=== PATIENT | female | born 1975 | race Caucasian/White ===

== ENCOUNTER 2018-04-01 18:56 | Emergency (ER) | payer BC ==
[2018-04-01] MEDS ORDERED: HYDROmorphone 2 MG/ML SDV IVPUSH ONE ×2 (19:12→19:48)
[2018-04-01] MEDS ORDERED: Sodium Chloride 0.9% 2.5 ML Syringe FLUSH PRN (19:12)
[2018-04-01] MEDS ORDERED: Pantoprazole 40 MG Vial IVPUSH ONE (19:12)
[2018-04-01] MEDS ORDERED: Ondansetron 4 MG/2 ML SDV IVPUSH ONE (19:12)
[2018-04-01] MEDS ORDERED: Sodium Chloride 0.9% 1,000 ML IV ONE (19:12)
[2018-04-01] MEDS ORDERED: Sodium Chloride 0.9% 10 ML Syringe FLUSH PRN (19:12)
--- NOTE | 2018-04-01 19:14 | EDM.PDOC ---
ED HPI GENERAL MEDICAL PROBLEM - General Chief Complaint: Abdominal Pain Stated Complaint: STOMACH PAIN Time Seen by Provider: 04/01/18 19:07 - History of Present Illness INITIAL COMMENTS - FREE TEXT/NARRATIVE: HISTORY AND PHYSICAL: History of present illness: The patient is a 42-year-old female with a history of a gastric sleeve and 2015 without complications and a hysterectomy who has only one ovary but no other GI history or GI surgeries who presents with sudden onset of epigastric and upper abdominal pain that started about 12 noon. The patient says that she was felt fine prior to this without a fever or upper respiratory symptoms or GI complaints. She thought maybe she ate something finding and she had some much nausea she felt that if she vomited she might feel better. She is only been having dry heaves. She has no flank pain or urinary complaints and no lower abdominal pain. She does feel little bit bloated. She says she has been having heartburn on and off for the last several weeks and has been taking over-the- counter meds but did not take any medications today for this discomfort. The pain has never been this severe. The patient says that she has had normal bowel movements that are not black or bloody. Patient denies any chest pain or shortness of breath no other systemic complaints Patient also tells me that she has had 2 surgeries on the right kidney including a stent for what they believe to be a 1 cm stone. I reviewed prior x- rays done here to follow that but she says that her urologist told her this is not a stone but it is scar tissue. She has no pain in the right flank. Review of systems: As per history of present illness and below otherwise all systems reviewed and negative. Past medical history: As per history of present illness and as reviewed below otherwise noncontributory. Surgical history: As per history of present illness and as reviewed below otherwise noncontributory. Social history: No reported history of drug or alcohol abuse. Family history: As per history of present illness and as reviewed below otherwise noncontributory. Physical exam: General: Well-developed well-nourished thin female who is nontoxic and looks visibly uncomfortable and is somewhat diaphoretic. Vital signs are noted by me HEENT: Atraumatic, normocephalic, negative for conjunctival pallor or scleral icterus, mucous membranes moist, throat clear, neck supple, nontender, trachea midline. Lungs: Clear to auscultation, breath sounds equal bilaterally, chest nontender. Wheezing stridor or work of breathing Heart: S1S2, regular rhythm and tachycardic rate on my evaluation, negative for clicks, rubs, or JVD. Abdomen: Soft, nondistended, no sounds are hypoactive and there is tympany in the lower abdomen without tenderness and there is epigastric and left upper quadrant tenderness with palpation. There is voluntary guarding no involuntary guarding and no rebound. Negative for masses or hepatosplenomegaly. Negative for costovertebral tenderness. Pelvis: Stable nontender. Genitourinary: Deferred. Rectal: Deferred. Extremities: Atraumatic, negative for cords or calf pain. Neurovascular unremarkable. Neuro: Awake, alert, oriented. Cranial nerves II through XII unremarkable. Cerebellum unremarkable. Motor and sensory unremarkable throughout. Exam nonfocal. Skin: There are no overt rashes or lesions and turgor is normal but the patient is slightly diaphoretic Diagnostics: CBC CMP H. pylori amylase lipase UA upright abdominal x-ray CT scan of the abdomen and pelvis Therapeutics: IV IV fluids protonix Zofran Dilaudid She received Benadryl after she felt some itchiness in her face after the Dilaudid. Patient is feeling more comfortable and she and family at bedside are aware of all testing results. I advised close follow-up with Dr. Fontana in the clinic, her provider, for further testing such as possible endoscopy and/or HIDA scan I' ve advised her to avoid caffeine and alcohol spicy foods and eat a low-fat diet. I will give her antacids for home as well as a few tramadol. I've advised her on reasons to return. We also discussed gentle bowel cleansing to evacuate the gas and stool that's in the colon Impression: Upper abdominal pain stable etiology unclear Definitive disposition and diagnosis as appropriate pending reevaluation and review of above. epigastric Pain Score (Numeric/FACES): 10 - Related Data Allergies Allergy/AdvReac Type Severity Reaction Status Date / Time Sulfa (Sulfonamide Allergy Rash Verified 04/01/18 19:32 Antibiotics) Home Meds: Home Meds Zolpidem Tartrate [Ambien] 12.5 mg PO BEDTIME 04/01/18 [History] ED ROS GENERAL - Review of Systems Review Of Systems: ROS reveals no pertinent complaints other than HPI. ED EXAM, GENERAL - Physical Exam Exam: See Below (See dictation) Course - Vital Signs Last Recorded V/S: Last Vital Signs Temp 37.2 C 04/01/18 19:00 Pulse 93 04/01/18 20:27 Resp 14 04/01/18 20:27 BP 141/84 H 04/01/18 20:27 Pulse Ox 100 04/01/18 20:27 - Orders/Labs/Meds Orders: Active Orders 24 hr Category Date Time Status Abdomen 1V Upright [CR] Stat Exams 04/01/18 19:15 Taken Abdomen Pelvis w Cont [CT] Stat Exams 04/01/18 19:12 Taken UA W/MICROSCOPIC [URIN] Stat Lab 04/01/18 19:06 Ordered Sodium Chloride 0.9% [Saline Flush] Med 04/01/18 19:12 Active 10 ml FLUSH ASDIRECTED PRN Sodium Chloride 0.9% [Saline Flush] Med 04/01/18 19:12 Active 2.5 ml FLUSH ASDIRECTED PRN Saline Lock Insert [OM.PC] Stat Oth 04/01/18 19:11 Ordered Medication Orders Sodium Chloride (Saline Flush) 10 ml FLUSH ASDIRECTED PRN PRN Reason: Keep Vein Open Sodium Chloride (Saline Flush) 2.5 ml FLUSH ASDIRECTED PRN PRN Reason: Keep Vein Open Labs: Laboratory Tests 04/01/18 04/01/18 04/01/18 Range/Units 19:06 19:20 19:20 WBC 8.10 (4.0-11.0) K/uL RBC 4.35 (4.30-5.90) M/uL Hgb 11.3 L (12.0-16.0) g/dL Hct 36.7 (36.0-46.0) % MCV 84.4 (80.0-98.0) fL MCH 26.0 L (27.0-32.0) pg MCHC 30.8 L (31.0-37.0) g/dL RDW Std Deviation 44.8 (28.0-62.0) fl RDW Coeff of Elian 14 (11.0-15.0) % Plt Count 379 (150-400) K/uL MPV 11.20 (7.40-12.00) fL Neut % (Auto) 46.0 L (48.0-80.0) % Lymph % (Auto) 47.3 H (16.0-40.0) % Desha % (Auto) 5.2 (0.0-15.0) % Eos % (Auto) 0.9 (0.0-7.0) % Baso % (Auto) 0.6 (0.0-1.5) % Neut # (Auto) 3.7 (1.4-5.7) K/uL Lymph # (Auto) 3.8 H (0.6-2.4) K/uL Desha # (Auto) 0.4 (0.0-0.8) K/uL Eos # (Auto) 0.1 (0.0-0.7) K/uL Baso # (Auto) 0.1 (0.0-0.1) K/uL Nucleated RBC % 0.0 /100WBC Nucleated RBCs # 0 K/uL Sodium 140 (136-145) mmol/L Potassium 3.8 (3.5-5.1) mmol/L Chloride 105 (98-107) mmol/L Carbon Dioxide 25.4 (21.0-32.0) mmol/L BUN 18 (7.0-18.0) mg/dL Creatinine 0.8 (0.6-1.0) mg/dL Est Cr Clr Drug Dosing TNP Estimated GFR (MDRD) > 60.0 ml/min Glucose 97 (74-106) mg/dL Calcium 11.0 H (8.5-10.1) mg/dL Total Bilirubin 0.3 (0.2-1.0) mg/dL AST 19 (15-37) IU/L ALT 16 (14-63) IU/L Alkaline Phosphatase 62 (46-116) U/L Total Protein 8.1 (6.4-8.2) g/dL Albumin 4.6 (3.4-5.0) g/dL Globulin 3.5 (2.0-3.5) g/dL Albumin/Globulin Ratio 1.3 (1.3-2.8) Amylase 60 (25-115) U/L Lipase 192 (73-393) U/L Urine Color YELLOW Urine Appearance CLEAR Urine pH 8.0 (5.0-8.0) Ur Specific [place] 1.015 (1.001-1.035) Urine Protein NEGATIVE (NEGATIVE) mg/dL Urine Glucose (UA) NEGATIVE (NEGATIVE) mg/dL Urine Ketones NEGATIVE (NEGATIVE) mg/dL Urine Occult Blood NEGATIVE (NEGATIVE) Urine Nitrite NEGATIVE (NEGATIVE) Urine Bilirubin NEGATIVE (NEGATIVE) Urine Urobilinogen 0.2 (<2.0) EU/dL Ur Leukocyte Esterase NEGATIVE (NEGATIVE) Urine RBC 0-1 (0-2/HPF) Urine WBC 0-1 (0-5/HPF) Ur Epithelial Cells FEW (NONE-FEW) Urine Bacteria FEW (NEGATIVE) H. pylori IgG Antibody (NEG) 04/01/18 Range/Units 19:20 WBC (4.0-11.0) K/uL RBC (4.30-5.90) M/uL Hgb (12.0-16.0) g/dL Hct (36.0-46.0) % MCV (80.0-98.0) fL MCH (27.0-32.0) pg MCHC (31.0-37.0) g/dL RDW Std Deviation (28.0-62.0) fl RDW Coeff of Elian (11.0-15.0) % Plt Count (150-400) K/uL MPV (7.40-12.00) fL Neut % (Auto) (48.0-80.0) % Lymph % (Auto) (16.0-40.0) % Desha % (Auto) (0.0-15.0) % Eos % (Auto) (0.0-7.0) % Baso % (Auto) (0.0-1.5) % Neut # (Auto) (1.4-5.7) K/uL Lymph # (Auto) (0.6-2.4) K/uL Desha # (Auto) (0.0-0.8) K/uL Eos # (Auto) (0.0-0.7) K/uL Baso # (Auto) (0.0-0.1) K/uL Nucleated RBC % /100WBC Nucleated RBCs # K/uL Sodium (136-145) mmol/L Potassium (3.5-5.1) mmol/L Chloride (98-107) mmol/L Carbon Dioxide (21.0-32.0) mmol/L BUN (7.0-18.0) mg/dL Creatinine (0.6-1.0) mg/dL Est Cr Clr Drug Dosing Estimated GFR (MDRD) ml/min Glucose (74-106) mg/dL Calcium (8.5-10.1) mg/dL Total Bilirubin (0.2-1.0) mg/dL AST (15-37) IU/L ALT (14-63) IU/L Alkaline Phosphatase (46-116) U/L Total Protein (6.4-8.2) g/dL Albumin (3.4-5.0) g/dL Globulin (2.0-3.5) g/dL Albumin/Globulin Ratio (1.3-2.8) Amylase (25-115) U/L Lipase (73-393) U/L Urine Color Urine Appearance Urine pH (5.0-8.0) Ur Specific [place] (1.001-1.035) Urine Protein (NEGATIVE) mg/dL Urine Glucose (UA) (NEGATIVE) mg/dL Urine Ketones (NEGATIVE) mg/dL Urine Occult Blood (NEGATIVE) Urine Nitrite (NEGATIVE) Urine Bilirubin (NEGATIVE) Urine Urobilinogen (<2.0) EU/dL Ur Leukocyte Esterase (NEGATIVE) Urine RBC (0-2/HPF) Urine WBC (0-5/HPF) Ur Epithelial Cells (NONE-FEW) Urine Bacteria (NEGATIVE) H. pylori IgG Antibody NEGATIVE (NEG) Meds: Medications Generic Name Dose Route Start Last Admin Trade Name Freq PRN Reason Stop Dose Admin Sodium Chloride 10 ml 04/01/18 19:12 Saline Flush FLUSH ASDIRECTED PRN Keep Vein Open Sodium Chloride 2.5 ml 04/01/18 19:12 Saline Flush FLUSH ASDIRECTED PRN Keep Vein Open Discontinued Medications Generic Name Dose Route Start Last Admin Trade Name Freq PRN Reason Stop Dose Admin Diphenhydramine HCl 50 mg 04/01/18 20:16 04/01/18 20:22 Benadryl IVPUSH 04/01/18 20:17 50 mg ONETIME ONE Administration Hydromorphone HCl 1 mg 04/01/18 19:12 04/01/18 19:21 Dilaudid IVPUSH 04/01/18 19:13 1 mg ONETIME ONE Administration Hydromorphone HCl 1 mg 04/01/18 19:48 04/01/18 19:53 Dilaudid IVPUSH 04/01/18 19:49 1 mg ONETIME ONE Administration Sodium Chloride 1,000 mls @ 999 mls/hr 04/01/18 19:12 04/01/18 19:21 Normal Saline IV 04/01/18 20:12 999 mls/hr STAT ONE Administration Iopamidol 80 ml 04/01/18 20:26 04/01/18 20:27 Isovue-370 (76%) IVPUSH 04/01/18 20:27 80 ml ONETIME STA Administration Ondansetron HCl 4 mg 04/01/18 19:12 04/01/18 19:21 Zofran IVPUSH 04/01/18 19:13 4 mg ONETIME ONE Administration Pantoprazole Sodium 80 mg 04/01/18 19:12 04/01/18 19:21 Protonix Iv IVPUSH 04/01/18 19:13 80 mg .BOLUS ONE Administration Departure - Departure Time of Disposition: 21:11 Disposition: Home, Self-Care 01 Condition: Good Clinical Impression: Abdominal pain Qualifiers: Abdominal location: upper abdomen, unspecified Qualified Code(s): R10.10 - Upper abdominal pain, unspecified - Discharge Information Referrals: PCP,None [Primary Care Provider] - Forms: ED Department Discharge Additional Instructions: The following information is given to patients seen in the emergency department who are being discharged to home. This information is to outline your options for follow-up care. We provide all patients seen in our emergency department with a follow-up referral. The need for follow-up, as well as the timing and circumstances, are variable depending upon the specifics of your emergency department visit. If you don't have a primary care physician on staff, we will provide you with a referral. We always advise you to contact your personal physician following an emergency department visit to inform them of the circumstance of the visit and for follow-up with them and/or the need for any referrals to a consulting specialist. The emergency department will also refer you to a specialist when appropriate. This referral assures that you have the opportunity for followup care with a specialist. All of these measure are taken in an effort to provide you with optimal care, which includes your followup. Under all circumstances we always encourage you to contact your private physician who remains a resource for coordinating your care. When calling for followup care, please make the office aware that this follow-up is from your recent emergency room visit. If for any reason you are refused follow-up, please contact the [facility] emergency department at and ask to speak to the emergency department charge nurse. Primary care- Internal Medicine and Family [place] [phone] [place] [id number] Please contact her provider in the clinic as we discussed to be seen reevaluated and have further testing performed as indicated. Please fill-in use the prescriptions yet been given. Avoid caffeinated products alcohol spicy foods and eat a low-fat diet. Try to promote gas and stool movement as we discussed using [id number] preps such as MiraLAX. Return to ER as needed and as discussed - My Orders Last 24 Hours: My Active Orders 04/01/18 19:06 UA W/MICROSCOPIC [URIN] Stat 04/01/18 19:11 Saline Lock Insert [OM.PC] Stat 04/01/18 19:12 Abdomen Pelvis w Cont [CT] Stat Sodium Chloride 0.9% [Saline Flush] 10 ml FLUSH ASDIRECTED PRN Sodium Chloride 0.9% [Saline Flush] 2.5 ml FLUSH ASDIRECTED PRN 04/01/18 19:15 Abdomen 1V Upright [CR] Stat - Assessment/Plan Last 24 Hours: My Active Orders 04/01/18 19:06 UA W/MICROSCOPIC [URIN] Stat 04/01/18 19:11 Saline Lock Insert [OM.PC] Stat 04/01/18 19:12 Abdomen Pelvis w Cont [CT] Stat Sodium Chloride 0.9% [Saline Flush] 10 ml FLUSH ASDIRECTED PRN Sodium Chloride 0.9% [Saline Flush] 2.5 ml FLUSH ASDIRECTED PRN 04/01/18 19:15 Abdomen 1V Upright [CR] Stat
[2018-04-01 19:48] LABS: CHLORIDE,CL 105 mmol/L (98-107); SODIUM,NA 140 mmol/L (136-145)
[2018-04-01] MEDS ORDERED: diphenhydrAMINE 50 MG/ML SDV IVPUSH ONE (20:16)
[2018-04-01] MEDS ORDERED: Iopamidol 755 Mg/ML 100 ML Bottle IVPUSH STA (20:26)
--- NOTE | 2018-04-02 14:46 | CR ---
EXAM DATE: 04/01/18 PATIENT'S AGE: 42 Patient: MICHAEL CARPIO Facility: [place], [place] Site . Site : 1975 Study: XRay Abdomen [id number]/14/2018 7:52:38 PM Ordering Physician: Lucien Jenkins Final Report: INDICATION: Pain. TECHNIQUE: Single upright view of the abdomen. COMPARISON: None. IMPRESSION: No free intraperitoneal air is identified. There is a nonobstructive bowel gas pattern with a moderate amount of stool in the colon. Nonspecific calcification is again seen in the right upper quadrant. No acute osseous abnormality. Dictated by Justin Benedict MD @ 04/01/2018 8:17:44 PM Dictated by: Justin Benedict MD @ 04/01/2018 20:19:29 (Electronic Signature) Report Signed by Proxy. MTDCristofer
--- NOTE | 2018-04-02 14:50 | CT ---
EXAM DATE: 04/01/18 PATIENT'S AGE: 42 Patient: MICHAEL CARPIO Facility: [place], [place] Site . Site : 1975 Study: CT Abdomen/Pelvis [id number]/14/2018 8:32:23 PM Ordering Physician: Lucien Jenkins Final Report: INDICATION: Epigastric pain. TECHNIQUE: Multiple axial images were obtained from the diaphragm to the symphysis pubis after administration of 80 mL of Isovue-370 intravenously. Sagittal and coronal re-formatted images were obtained. COMPARISON: Plain film done earlier same date. FINDINGS: The visualized portion of the lung bases are clear. There is no focal liver lesion. The spleen, pancreas, gallbladder and adrenal glands are unremarkable. There is no mass or hydronephrosis in the kidneys. There is a 1.1 cm stone in the right mid kidney. There is scarring with associated cortical calcifications in the upper and lower pole of the right kidney. There is no evidence of a bowel obstruction. The appendix is visualized in the right lower quadrant and is unremarkable. There is a small amount of free fluid in the pelvis. There is evidence of previous surgery on the stomach. There are multiple phleboliths in the pelvis. The abdominal aorta is normal in caliber. There is no adenopathy seen. IMPRESSION: Small amount of free fluid in the pelvis which is likely physiologic. 1.1 cm right kidney stone. No hydronephrosis in the kidneys. Scarring in the right kidney. Evidence of previous surgery on the stomach. No bowel obstruction. Dictated by Sy Westfall MD @ 04/01/2018 8:53:22 PM Please note that all CT scans at this facility use dose modulation, iterative reconstruction, and/or weight-based dosing when appropriate to reduce radiation dose to as low as reasonably achievable. Dictated by: Sy Westfall MD @ 04/01/2018 20:55:03 (Electronic Signature) Report Signed by Proxy. [facility] H[facility]PITALCristofer
== END 2018-04-01 21:35 | disposition home or self-care (01) ==
LOC: MW.ED 18:56
DX: R10.13 Epigastric pain (principal); R10.10 Upper abdominal pain, unspecified; Z88.2 Allergy status to sulfonamides
CPT/HCPCS: 74018; 74177; 80053; 81001; 82150; 83690; 85025; 86677; 96361; 96374; 96375; 96376; 99284; C9113; J1170; J1200; J2405; J7040; Q9967; 99283

== ENCOUNTER 2018-05-02 11:00 | Day surgery (SDC) | payer BC ==
[~2018-05-02 11:00] MED LIST: Lactated Ringers 1,000 ML IV SCH
--- NOTE | 2018-05-02 11:39 | PCM.PREANE ---
Preanesthetic Assessment - Anesthesia/Transfusion/Family Hx Anesthesia History: Prior Anesthesia Reaction Type of Anesthesia Reaction: Excessive Nausea/Vomiting (no PONV with colonoscopy ) Transfusion History: No Prior Transfusion(s) - Review of Systems General: No Symptoms Pulmonary: No Symptoms Cardiovascular: No Symptoms Neurological: No Symptoms Other: Reports: None - Physical Assessment NPO Status Date: 05/01/18 Height: 1.63 m Weight: 61.235 kg ASA Class: 2 Mental Status: Alert & Oriented x3 Airway Class: Mallampati = 1 Dentition: Reports: Normal Dentition ROM/Head Extension: Full Lungs: Clear to Auscultation, Normal Respiratory Effort Cardiovascular: Regular Rate - Allergies Allergies/Adverse Reactions: Allergies Allergy/AdvReac Type Severity Reaction Status Date / Time Sulfa (Sulfonamide Allergy Rash Verified 04/29/18 10:57 Antibiotics) - Anesthesia Plan Pre-Op Medication Ordered: None - Acknowledgements Anesthesia Type Planned: MAC Pt an Appropriate Candidate for the Planned Anesthesia: Yes Alternatives and Risks of Anesthesia Discussed w Pt/Guardian: Yes Pt/Guardian Understands and Agrees with Anesthesia Plan: Yes PreAnesthesia Questionnaire HEENT History: Reports: None Gastrointestinal History: Reports: GERD Genitourinary History: Reports: Renal Calculus [employer] History: Reports: Endometriosis, Musculoskeletal History: Reports: Fracture Other Musculoskeletal History: hx fx wrist - Past Surgical History Head Surgeries/Procedures: Reports: None HEENT Surgical History: Reports: Tonsillectomy GI Surgical History: Reports: Bariatric Procedure Other GI Surgeries/Procedures: gastric banding, removal of gastric banding, gastric sleeve Female Surgical History: Reports: D&C, Hysterectomy, Lithotripsy/ESWL, Other (See Below) Other Female Surgeries/Procedures: laparoscopy x9 for endometriosis - SUBSTANCE USE Smoking Status *Q: Never Smoker Recreational Drug Use History: No - HOME MEDS Home Medications: Home Meds Zolpidem Tartrate [Ambien] 12.5 mg PO BEDTIME 04/01/18 [History] Cyclobenzaprine HCl 10 mg PO ASDIRECTED PRN 04/29/18 [History] Omeprazole 40 mg PO DAILY 04/29/18 [History] - CURRENT (IN HOUSE) MEDS Current Meds: Current Medications Lactated Ringer's (Ringers, Lactated) 1,000 mls @ 125 mls/hr IV ASDIRECTED NIK
[2018-05-02] MEDS ORDERED: Lidocaine 2% 5 ML SDV ONE (12:13)
[2018-05-02] MEDS ORDERED: Propofol 200 MG/20 ML SDV ONE (12:13)
[2018-05-02] MEDS ORDERED: Midazolam 1 MG/ML 2 ML SDV ONE (12:13)
--- NOTE | 2018-05-02 13:27 | PCM.OPNOTE ---
- General Post-Op/Procedure Note Date of Surgery/Procedure: 05/02/18 Operative Procedure(s): Diagnostic EGD Findings: Gastric mucosa free of pathology. Normal appearing sleeve. Questionable hiatal hernia Pre Op Diagnosis: Epigastric pain Post-Op Diagnosis: same Anesthesia Technique: MAC Primary Surgeon: Racquel Gomez Condition: Good
--- NOTE | 2018-05-02 13:40 | PCM.POSTAN ---
POST ANESTHESIA ASSESSMENT - MENTAL STATUS Mental Status: Alert, Oriented - RESPIRATORY Respiratory Status: Respiratory Rate WNL, Airway Patent, O2 Saturation Stable - CARDIOVASCULAR CV Status: Pulse Rate WNL, Blood Pressure Stable - GASTROINTESTINAL GI Status: No Symptoms - POST OP HYDRATION Hydration Status: Adequate & Stable
--- NOTE | 2018-05-02 14:02 | PCM48HPAN ---
Post Anesthesia Note - EVALUATION WITHIN 48HRS OF ANESTHETIC Vital Signs in Normal Range: Yes Patient Participated in Evaluation: Yes Respiratory Function Stable: Yes Airway Patent: Yes Cardiovascular Function Stable: Yes Hydration Status Stable: Yes Pain Control Satisfactory: Yes Nausea and Vomiting Control Satisfactory: Yes Mental Status Recovered: Yes Resp Rate: 16
--- NOTE | 2018-05-02 19:41 | OR ---
SURGEON: JIE DYKES MD DATE OF PROCEDURE: 05/02/2018 PREOPERATIVE DIAGNOSIS: Epigastric abdominal pain. POSTOPERATIVE DIAGNOSIS: Epigastric abdominal pain. PROCEDURE PERFORMED: Diagnostic esophagogastroduodenoscopy. INSTRUMENT USED: Olympus endoscope. PREPARATION: Good. LIMITATIONS: None. INDICATION FOR EXAMINATION: The patient is a 42-year-old female with past medical history significant for a sleeve gastrectomy. She has been having epigastric abdominal pain. She has undergone an extensive workup, which has all been normal. Decision was made to perform a diagnostic EGD. We discussed the procedure, expected perioperative course, and risks. The patient verbalized understanding and wishes to proceed. PROCEDURE IN DETAIL: The patient was brought to the endoscopy suite and placed in a beach chair position. A time-out was completed verifying the patient's name, age, date of , allergies, and procedure to be performed. A bite block was placed in the patient's mouth. Continuous oxygen provided via nasal cannula. Monitored anesthesia care was induced. After adequate sedation was achieved, a well lubricated endoscope was placed in the patient's mouth and advanced under direct visualization to the level of the second portion of duodenum. This appeared normal and a photograph was taken. The scope was then fully withdrawn while examining the color, texture, anatomy, integrity mucosa of the upper GI tract. The duodenum appeared normal. The scope was brought into the stomach. The stomach with narrowing tubular, which was to be expected after a sleeve gastrectomy. I was unable to retroflex the scope within the stomach, given its small size. A photograph was taken of the pylorus, which appeared normal. The gastric mucosa appeared pink and healthy with no evidence of any inflammation. The scope was brought into the distal esophagus. The patient had some tortuosity of the upper part of the stomach and esophagus. No evidence of inflammation, however, was noted. A photograph was taken of the GE junction. The scope was fully removed through remainder of the esophagus. The esophageal mucosa appeared normal with no evidence of pathology. The scope was removed from the patient and the procedure was terminated. The patient was transferred to the PACU in stable condition. ENDOSCOPIC DIAGNOSIS: Epigastric abdominal pain. RECOMMENDATIONS: I do not see any cause at this time for the patient's epigastric pain. She can continue taking lansoprazole. She can follow up with me in 2 weeks to discuss any further workup or referral to other specialists. SHERRI / MODL /[id number] NOE
== END 2018-05-02 14:05 | disposition home or self-care (01) ==
LOC: MW.SDS 11:00
PROVIDERS: ATTEND Surgery
DX: R10.13 Epigastric pain (principal); K31.89 Other diseases of stomach and duodenum; K22.8 Other specified diseases of esophagus; D64.9 Anemia, unspecified; E83.52 Hypercalcemia; F51.04 Psychophysiologic insomnia; Z79.899 Other long term (current) drug therapy; Z88.2 Allergy status to sulfonamides
CPT/HCPCS: 43235; J2250; J7120; J2704

== ENCOUNTER 2019-12-14 18:49 | Emergency (ER) | payer BC ==
[2019-12-14] MEDS ORDERED: Sodium Chloride 0.9% 2.5 ML Syringe FLUSH PRN (19:15)
[2019-12-14] MEDS ORDERED: Sodium Chloride 0.9% 1,000 ML IV ONE (19:15)
[2019-12-14] MEDS ORDERED: Aspirin 81 MG Tab.Chew PO ONE (19:15)
[2019-12-14] MEDS ORDERED: Sodium Chloride 0.9% 10 ML Syringe FLUSH PRN (19:15)
--- NOTE | 2019-12-14 19:19 | EDM.PDOC ---
ED HPI GENERAL MEDICAL PROBLEM - General Chief Complaint: Cardiovascular Problem Stated Complaint: heart problem Time Seen by Provider: 12/14/19 19:08 - History of Present Illness INITIAL COMMENTS - FREE TEXT/NARRATIVE: HISTORY AND PHYSICAL: History of present illness: The patient is a 44-year-old female who follows with Dr. Fontana and has been in the clinic for urinary issues and who presents to the ED tonight with an episode of palpitations which happened while she was at a meeting for work and has improved since arrival here. The patient tells me that she had a normal day only that she had some lower back pain which started yesterday while doing laundry and she ate normally and has not had any fevers chills upper respiratory symptoms vomiting or diarrhea. The patient says that at the meeting she started feeling like her heart was racing and she did not have any chest pain with it but she did feel little lightheaded and nauseated. Currently she is not lightheaded or nauseated and her heart rate has improved. She tells me that she has had similar episodes to this in the past occurring 2- 3 times a week for the last several months but she has not talked to her provider about it. She says that usually she can get her heart rate to improve just by relaxing but tonight she could not get it to stop so she came into the ED. She is not a smoker and does not drink excessive caffeine and she has no leg pain or swelling and is not on any oral contraceptives. Review of systems: As per history of present illness and below otherwise all systems reviewed and negative. Past medical history: As per history of present illness and as reviewed below otherwise noncontributory. Surgical history: As per history of present illness and as reviewed below otherwise noncontributory. Social history: No reported history of drug or alcohol abuse. Family history: As per history of present illness and as reviewed below otherwise noncontributory. Physical exam: Dental: Well-developed well-nourished thin female who is nontoxic and who is intermittently tearful in the ED. Her initial triage vitals are noted but her blood pressure is already normalized and in my conversation with her as she became more tearful and upset her heart rate would go up to low 100s and then as she would come down and relax it would normalize to the 80s. HEENT: Atraumatic, normocephalic, pupils reactive, negative for conjunctival pallor or scleral icterus, mucous membranes moist, throat clear, neck supple, nontender, trachea midline. No thyromegaly cervical adenopathy or nuchal rigidity Lungs: Clear to auscultation, breath sounds equal bilaterally, chest nontender. Heart: S1S2, regular, negative for clicks, rubs, or JVD. Abdomen: Soft, nondistended, nontender. Negative for masses or hepatosplenomegaly. Negative for costovertebral tenderness. Pelvis: Stable nontender. Genitourinary: Deferred. Rectal: Deferred. Extremities: Atraumatic, negative for cords or calf pain. Neurovascular unremarkable. No pedal edema calf tenderness or leg asymmetry Neuro: Awake, alert, oriented. Cranial nerves II through XII unremarkable. Cerebellum unremarkable. Motor and sensory unremarkable throughout. Exam nonfocal. Diagnostics: EKG chest x-ray CBC CMP troponin TSH UA with reflex Therapeutics: IV, O2 monitor IV fluids aspirin Discussed with the patient that we would do the work-up but that she would likely need follow-up in the clinic and probably a heart monitor to record what is occurring in her daily life and to help the provider in the clinic with a care plan. She states understanding. We do have an available Zio Patch and we will place it and instruct patient to start documenting her symptoms. I have told her that she needs to call and tell Dr. Fontana in the clinic that she has the patch on and schedule this follow-up. I have advised her on reasons to return to the ED and to push more fluids Impression: Episodic palpitations acute on chronic Definitive disposition and diagnosis as appropriate pending reevaluation and review of above. - Related Data Allergies Allergy/AdvReac Type Severity Reaction Status Date / Time Sulfa (Sulfonamide Allergy Rash Verified 12/14/19 19:00 Antibiotics) sulfamethoxazole Allergy Rash Verified 12/14/19 19:04 [From Bactrim] trimethoprim [From Bactrim] Allergy Rash Verified 12/14/19 19:04 Home Meds: Home Meds Tamsulosin HCl [Flomax] 0.4 mg PO DAILY 12/14/19 [History] Past Medical History HEENT History: Reports: None Cardiovascular History: Reports: None Respiratory History: Reports: None Gastrointestinal History: Reports: GERD Genitourinary History: Reports: Renal Calculus [employer] History: Reports: Endometriosis, Musculoskeletal History: Reports: Fracture Other Musculoskeletal History: hx fx wrist Neurological History: Reports: None Psychiatric History: Reports: None Endocrine/Metabolic History: Reports: None Hematologic History: Reports: None Immunologic History: Reports: None Oncologic (Cancer) History: Reports: None Dermatologic History: Reports: None - Infectious Disease History Infectious Disease History: Reports: None - Past Surgical History Head Surgeries/Procedures: Reports: None HEENT Surgical History: Reports: Tonsillectomy Cardiovascular Surgical History: Reports: None Respiratory Surgical History: Reports: None GI Surgical History: Reports: Bariatric Procedure Other GI Surgeries/Procedures: gastric banding, removal of gastric banding, gastric sleeve Female Surgical History: Reports: D&C, Hysterectomy, Lithotripsy/ESWL, Other (See Below) Other Female Surgeries/Procedures: laparoscopy x9 for endometriosis Endocrine Surgical History: Reports: None Neurological Surgical History: Reports: None Musculoskeletal Surgical History: Reports: None Oncologic Surgical History: Reports: None Dermatological Surgical History: Reports: None Social & Family History - Family History Family Medical History: Noncontributory - Tobacco Use Smoking Status *Q: Never Smoker Second Hand Smoke Exposure: No - Caffeine Use Caffeine Use: Reports: None - Recreational Drug Use Recreational Drug Use: No ED ROS GENERAL - Review of Systems Review Of Systems: Comprehensive ROS is negative, except as noted in HPI. ED EXAM, GENERAL - Physical Exam Exam: See Below (see Dictation) Course - Vital Signs Last Recorded V/S: Last Vital Signs Temp 36.6 C 12/14/19 18:58 Pulse 110 H 12/14/19 19:25 Resp 19 12/14/19 19:25 BP 141/93 H 12/14/19 19:25 Pulse Ox 100 12/14/19 19:25 - Orders/Labs/Meds Orders: Active Orders 24 hr Category Date Time Status Cardiac Monitoring [RC] . DIRECTED Care 12/14/19 19:15 Active EKG 12 Lead [EKG Documentation Completion] [RC] STAT Care 12/14/19 19:04 Active Oxygen Therapy, ED [RC] ASDIRECTED Care 12/14/19 19:15 Active Pulse Oximetry [RC] ASDIRECTED Care 12/14/19 19:15 Active UA RFX XIOMY AND CULT IF INDIC [URIN] Stat Lab 12/14/19 19:15 Ordered Sodium Chloride 0.9% [Saline Flush] Med 12/14/19 19:15 Active 10 ml FLUSH ASDIRECTED PRN Sodium Chloride 0.9% [Saline Flush] Med 12/14/19 19:15 Active 2.5 ml FLUSH ASDIRECTED PRN Saline Lock Insert [OM.PC] Stat Oth 12/14/19 19:15 Ordered Medication Orders Sodium Chloride (Saline Flush) 10 ml FLUSH ASDIRECTED PRN PRN Reason: Keep Vein Open Sodium Chloride (Saline Flush) 2.5 ml FLUSH ASDIRECTED PRN PRN Reason: Keep Vein Open Labs: Laboratory Tests 12/14/19 12/14/19 Range/Units 18:58 18:58 WBC 9.21 (4.0-11.0) K/uL RBC 4.44 (4.30-5.90) M/uL Hgb 14.1 (12.0-16.0) g/dL Hct 42.4 (36.0-46.0) % MCV 95.5 (80.0-98.0) fL MCH 31.8 (27.0-32.0) pg MCHC 33.3 (31.0-37.0) g/dL RDW Std Deviation 47.6 (28.0-62.0) fl RDW Coeff of Elian 14 (11.0-15.0) % Plt Count 258 (150-400) K/uL MPV 11.60 (7.40-12.00) fL Neut % (Auto) 60.2 (48.0-80.0) % Lymph % (Auto) 32.1 (16.0-40.0) % Mcnairy % (Auto) 6.7 (0.0-15.0) % Eos % (Auto) 0.7 (0.0-7.0) % Baso % (Auto) 0.3 (0.0-1.5) % Neut # (Auto) 5.5 (1.4-5.7) K/uL Lymph # (Auto) 3.0 H (0.6-2.4) K/uL Mcnairy # (Auto) 0.6 (0.0-0.8) K/uL Eos # (Auto) 0.1 (0.0-0.7) K/uL Baso # (Auto) 0.0 (0.0-0.1) K/uL Nucleated RBC % 0.0 /100WBC Nucleated RBCs # 0 K/uL Sodium 142 (136-145) mmol/L Potassium 3.6 (3.5-5.1) mmol/L Chloride 107 (98-107) mmol/L Carbon Dioxide 22.9 (21.0-32.0) mmol/L BUN 26 H (7.0-18.0) mg/dL Creatinine 0.9 (0.6-1.0) mg/dL Est Cr Clr Drug Dosing 68.16 mL/min Estimated GFR (MDRD) > 60.0 ml/min Glucose 90 (74-106) mg/dL Calcium 10.5 H (8.5-10.1) mg/dL Total Bilirubin 0.2 (0.2-1.0) mg/dL AST 12 L (15-37) IU/L ALT 22 (14-63) IU/L Alkaline Phosphatase 73 (46-116) U/L Troponin I < 0.050 (0.000-0.056) ng/mL Total Protein 7.6 (6.4-8.2) g/dL Albumin 4.2 (3.4-5.0) g/dL Globulin 3.4 (2.6-4.0) g/dL Albumin/Globulin Ratio 1.2 (0.9-1.6) TSH 3rd Generation 1.12 (0.36-3.74) uIU/mL Meds: Medications Generic Name Dose Route Start Last Admin Trade Name Mayito PRN Reason Stop Dose Admin Sodium Chloride 10 ml 12/14/19 19:15 Saline Flush FLUSH ASDIRECTED PRN Keep Vein Open Sodium Chloride 2.5 ml 12/14/19 19:15 Saline Flush FLUSH ASDIRECTED PRN Keep Vein Open Discontinued Medications Generic Name Dose Route Start Last Admin Trade Name Freq PRN Reason Stop Dose Admin Aspirin 324 mg 12/14/19 19:15 12/14/19 19:22 Aspirin PO 12/14/19 19:16 324 mg ONETIME ONE Administration Sodium Chloride 1,000 mls @ 999 mls/hr 12/14/19 19:15 12/14/19 19:23 Normal Saline IV 12/14/19 20:15 999 mls/hr STAT ONE Administration Departure - Departure Time of Disposition: 20:28 Disposition: Home, Self-Care 01 Reason for Transfer *Q: Primary PCI Indicated Condition: Good Clinical Impression: Palpitations, Sinus tachycardia Referrals: Radha Fontana MD [Primary Care Provider] - Forms: ED Department Discharge Additional Instructions: The following information is given to patients seen in the emergency department who are being discharged to home. This information is to outline your options for follow-up care. We provide all patients seen in our emergency department with a follow-up referral. The need for follow-up, as well as the timing and circumstances, are variable depending upon the specifics of your emergency department visit. If you don't have a primary care physician on staff, we will provide you with a referral. We always advise you to contact your personal physician following an emergency department visit to inform them of the circumstance of the visit and for follow-up with them and/or the need for any referrals to a consulting specialist. The emergency department will also refer you to a specialist when appropriate. This referral assures that you have the opportunity for followup care with a specialist. All of these measure are taken in an effort to provide you with optimal care, which includes your followup. Under all circumstances we always encourage you to contact your private physician who remains a resource for coordinating your care. When calling for followup care, please make the office aware that this follow-up is from your recent emergency room visit. If for any reason you are refused follow-up, please contact the [facility] emergency department at and ask to speak to the emergency department charge nurse. [facility]- Internal Medicine and Family [address] [address] Try to avoid caffeine use and push hydration. Please continue to monitor your symptoms and keep a symptom journal of when these events are occurring along their lasting and if there are any triggers or surrounding events. Please call and make a follow-up appointment with your provider in the clinic. Return to ER as needed and as discussed. A Zio Patch placed in the ED and you need to monitor your symptoms and keep a journal and you will be informed on where to return this patch. Having this patch placed does not preclude following up with your provider this week. Sepsis Event Note - Evaluation Sepsis Screening Result: No Definite Risk - Focused Exam Vital Signs: Vital Signs Temp Pulse Resp BP Pulse Ox 12/14/19 19:25 110 H 19 141/93 H 100 12/14/19 19:10 95 19 136/76 100 12/14/19 18:58 36.6 C 132 H 22 H 170/110 H 100 Date Exam was Performed: 12/14/19 Time Exam was Performed: 20:27 - My Orders Last 24 Hours: My Active Orders 12/14/19 19:04 EKG 12 Lead [EKG Documentation Completion] [RC] STAT 12/14/19 19:15 Cardiac Monitoring [RC] . DIRECTED Oxygen Therapy, ED [RC] ASDIRECTED Pulse Oximetry [RC] ASDIRECTED UA RFX XIOMY AND CULT IF INDIC [URIN] Stat Sodium Chloride 0.9% [Saline Flush] 10 ml FLUSH ASDIRECTED PRN Sodium Chloride 0.9% [Saline Flush] 2.5 ml FLUSH ASDIRECTED PRN Saline Lock Insert [OM.PC] Stat - Assessment/Plan Last 24 Hours: My Active Orders 12/14/19 19:04 EKG 12 Lead [EKG Documentation Completion] [RC] STAT 12/14/19 19:15 Cardiac Monitoring [RC] . DIRECTED Oxygen Therapy, ED [RC] ASDIRECTED Pulse Oximetry [RC] ASDIRECTED UA RFX XIOMY AND CULT IF INDIC [URIN] Stat Sodium Chloride 0.9% [Saline Flush] 10 ml FLUSH ASDIRECTED PRN Sodium Chloride 0.9% [Saline Flush] 2.5 ml FLUSH ASDIRECTED PRN Saline Lock Insert [OM.PC] Stat
[2019-12-14 19:48] LABS: BLOOD UREA NITROGEN,BUN 26 mg/dL (7.0-18.0); CARBON DIOXIDE,CO2 22.9 mmol/L (21.0-32.0); CHLORIDE,CL 107 mmol/L (98-107); GLUCOSE RANDOM 90 mg/dL (74-106); POTASSIUM,K 3.6 mmol/L (3.5-5.1); SODIUM,NA 142 mmol/L (136-145)
--- NOTE | 2019-12-14 20:26 | CR ---
Chest: Portable view of the chest was obtained. Comparison: No prior chest imaging is available. Heart size and mediastinum are normal. Lungs are clear. Bony structures appear unremarkable for the patient's age. Impression: 1. Nothing acute is seen on portable chest x-ray. Diagnostic code #1 This report was dictated in [place] Standard Time
== END 2019-12-14 21:04 | disposition home or self-care (01) ==
LOC: MW.ED 18:49
DX: R00.2 Palpitations (principal); R00.0 Tachycardia, unspecified; Z88.2 Allergy status to sulfonamides; Z79.899 Other long term (current) drug therapy
CPT/HCPCS: 36415; 71045; 80053; 81003; 84443; 84484; 85025; 93005; 96360; 99285; A9270; J7030; 99284

== ENCOUNTER 2022-09-28 06:42 | Day surgery (SDC) | payer BC ==
[~2022-09-28 06:42] MED LIST changes: -Lactated Ringers 1,000 ML IV SCH; +Sodium Chloride 0.9% 10 ML Syringe FLUSH PRN; +Sodium Chloride 0.9% 2.5 ML Syringe FLUSH PRN; +Sodium Chloride 0.9% 20 ML SDV IV PRN
[2022-09-28] MEDS: Lactated Ringers 1,000 ML IV SCH (07:09)
[2022-09-28] MEDS ORDERED: Propofol 200 MG/20 ML SDV ONE (07:20)
[2022-09-28] MEDS ORDERED: Lidocaine 2% 5 ML SDV ONE (07:20)
[2022-09-28] MEDS ORDERED: fentaNYL 100 MCG/2 ML SDV ONE (07:20)
== END 2022-09-28 09:19 | disposition home or self-care (01) ==
LOC: MW.SDS 06:42
PROVIDERS: ATTEND Surgery
DX: Z12.11 Encounter for screening for malignant neoplasm of colon (principal); G43.909 Migraine, unspecified, not intractable, without status migrainosus; D50.9 Iron deficiency anemia, unspecified; E21.3 Hyperparathyroidism, unspecified; K21.9 Gastro-esophageal reflux disease without esophagitis; E55.9 Vitamin D deficiency, unspecified; M81.0 Age-related osteoporosis without current pathological fracture; Z88.2 Allergy status to sulfonamides; Z79.899 Other long term (current) drug therapy; Z80.0 Family history of malignant neoplasm of digestive organs; Z98.890 Other specified postprocedural states; Z87.891 Personal history of nicotine dependence
CPT/HCPCS: 00812; J2704; J3010; J7120

== ENCOUNTER 2025-10-02 16:40 | Observation (INO) | payer BC ==
[2025-10-02] MEDS ORDERED: Sodium Chloride 0.9% 2.5 ML Syringe FLUSH PRN (16:46)
[2025-10-02] MEDS ORDERED: Sodium Chloride 0.9% 10 ML Syringe FLUSH PRN (16:46)
[2025-10-02] MEDS: Ondansetron 4 MG/2 ML SDV IVPUSH ONE ×2 (17:05→19:35)
[2025-10-02 18:41] LABS: BASOPHILS ABSOLUTE AUTO 0.05 K/uL (0.00-0.20); BASOPHILS PERCENT AUTO 0.4 % (0.0-1.0); EOSINOPHILS ABSOLUTE AUTO 0.09 K/uL (0.00-0.45); EOSINOPHILS PERCENT AUTO 0.6 % (0.0-6.0); IMMATURE GRAN ABSOLUTE AUTO 0.03 K/uL (0.00-0.05); IMMATURE GRAN PERCENT AUTO 0.2 % (0.0-0.4); LYMPHOCYTES ABSOLUTE AUTO 1.80 K/uL (1.00-4.80); LYMPHOCYTES PERCENT AUTO 12.8 % (24.0-44.0); MEAN PLATELET VOLUME 10.1 fL (9.4-12.3); MONOCYTES ABSOLUTE AUTO 0.75 K/uL (0.00-0.80); MONOCYTES PERCENT AUTO 5.3 % (0.0-8.0); NEUTROPHILS ABSOLUTE AUTO 11.35 K/uL (1.80-7.70); NEUTROPHILS PERCENT AUTO 80.7 % (41.0-71.0); NRBC ABSOLUTE 0.00 K/uL (0.00-0.02); NRBC PERCENT 0.0 /100WBC (0.0-0.2); PLATELET COUNT,PLT 243 K/uL (150-400); RED BLOOD CELL COUNT 4.30 M/uL (4.10-5.30); WHITE BLOOD CELL COUNT,WBC 14.07 K/uL (3.9-11.3)
[2025-10-02] MEDS: Iopamidol 755 MG/ML 500 ML Multipack Bottle IVPUSH STA (18:57)
[2025-10-02 19:10] LABS: A/G RATIO 1.5 (0.9-1.6); ALANINE AMINOTRANSFERASE,ALT 28.0 IU/L (14-63); ASPARTATE AMNIOTRANSFERASE,AST 23.0 IU/L (15-37); BILIRUBIN TOTAL 0.2 mg/dL (0.2-1.0); BLOOD UREA NITROGEN,BUN 18.0 mg/dL (7.0-18.0); CARBON DIOXIDE,CO2 31.8 mmol/L (21.0-32.0); CHLORIDE,CL 107.0 mmol/L (98-107); CREATININE 0.5 mg/dL (0.6-1.0); EST CRCL DRUG DOSING (CG) 114.95 mL/min; GLUCOSE RANDOM 90.0 mg/dL (74-106); POTASSIUM,K 4.7 mmol/L (3.5-5.1); PROTEIN TOTAL,TP 6.1 g/dL (6.4-8.2); SODIUM,NA 145.0 mmol/L (136-145)
[2025-10-02 19:24] LABS: ESTIMATED GFR 113.0 mL/min (>60)
[2025-10-02 19:54] LABS: APPEARANCE,URINE CLEAR; GLUCOSE,URINE NEGATIVE (NEGATIVE); OCCULT BLOOD,URINE NEGATIVE (NEGATIVE)
[2025-10-02] MEDS ORDERED: Naloxone 0.4 MG/ML SDV IVPUSH PRN (22:00)
[2025-10-02] MEDS ORDERED: Ondansetron 4 MG/2 ML SDV IVPUSH PRN (22:03)
[2025-10-03] MEDS ORDERED: Sodium Chloride 0.9% 2.5 ML Syringe FLUSH PRN (01:17)
[2025-10-03] MEDS ORDERED: Sodium Chloride 0.9% 10 ML Syringe FLUSH PRN (01:17)
[2025-10-03 06:18] LABS: BASOPHILS ABSOLUTE AUTO 0.02 K/uL (0.00-0.20); BASOPHILS PERCENT AUTO 0.4 % (0.0-1.0); EOSINOPHILS ABSOLUTE AUTO 0.10 K/uL (0.00-0.45); EOSINOPHILS PERCENT AUTO 1.9 % (0.0-6.0); IMMATURE GRAN ABSOLUTE AUTO 0.01 K/uL (0.00-0.05); IMMATURE GRAN PERCENT AUTO 0.2 % (0.0-0.4); LYMPHOCYTES ABSOLUTE AUTO 1.91 K/uL (1.00-4.80); LYMPHOCYTES PERCENT AUTO 37.1 % (24.0-44.0); MEAN PLATELET VOLUME 10.6 fL (9.4-12.3); MONOCYTES ABSOLUTE AUTO 0.36 K/uL (0.00-0.80); MONOCYTES PERCENT AUTO 7.0 % (0.0-8.0); NEUTROPHILS ABSOLUTE AUTO 2.75 K/uL (1.80-7.70); NEUTROPHILS PERCENT AUTO 53.4 % (41.0-71.0); NRBC ABSOLUTE 0.00 K/uL (0.00-0.02); NRBC PERCENT 0.0 /100WBC (0.0-0.2); PLATELET COUNT,PLT 199 K/uL (150-400); RED BLOOD CELL COUNT 3.48 M/uL (4.10-5.30); WHITE BLOOD CELL COUNT,WBC 5.15 K/uL (3.9-11.3)
[2025-10-03 06:50] LABS: ALANINE AMINOTRANSFERASE,ALT 23.0 IU/L (14-63); ASPARTATE AMNIOTRANSFERASE,AST 20.0 IU/L (15-37); BILIRUBIN TOTAL 0.3 mg/dL (0.2-1.0); BLOOD UREA NITROGEN,BUN 17.0 mg/dL (7.0-18.0); CARBON DIOXIDE,CO2 29.6 mmol/L (21.0-32.0); CHLORIDE,CL 110.0 mmol/L (98-107); CHOLESTEROL HDL 69.0 mg/dL (40-60); CHOLESTEROL LDL CALCULATED 90.0 mg/dL (60-180); CHOLESTEROL TOTAL 166.0 mg/dL (50-200); CREATININE 0.5 mg/dL (0.6-1.0); EST CRCL DRUG DOSING (CG) 114.95 mL/min; GLUCOSE RANDOM 78.0 mg/dL (74-106); PHOSPHORUS 3.6 mg/dL (2.6-4.7); POTASSIUM,K 4.1 mmol/L (3.5-5.1); PROTEIN TOTAL,TP 5.4 g/dL (6.4-8.2); SODIUM,NA 144.0 mmol/L (136-145); VLDL CHOLESTEROL 7.0 mg/dL (5-55)
[2025-10-03] MEDS: Lactated Ringers 1,000 ML IV SCH (07:04)
[2025-10-03 07:06] LABS: A/G RATIO 1.4 (0.9-1.6); ESTIMATED GFR 113.0 mL/min (>60)
[2025-10-03] MEDS: Pantoprazole 40 MG in Sodium Chloride 0.9% 20 ML IVPUSH ONE (18:08)
[2025-10-04 05:36] LABS: BASOPHILS ABSOLUTE AUTO 0.04 K/uL (0.00-0.20); BASOPHILS PERCENT AUTO 0.9 % (0.0-1.0); EOSINOPHILS ABSOLUTE AUTO 0.12 K/uL (0.00-0.45); EOSINOPHILS PERCENT AUTO 2.7 % (0.0-6.0); IMMATURE GRAN ABSOLUTE AUTO 0.00 K/uL (0.00-0.05); IMMATURE GRAN PERCENT AUTO 0.0 % (0.0-0.4); LYMPHOCYTES ABSOLUTE AUTO 1.98 K/uL (1.00-4.80); LYMPHOCYTES PERCENT AUTO 44.9 % (24.0-44.0); MEAN PLATELET VOLUME 10.3 fL (9.4-12.3); MONOCYTES ABSOLUTE AUTO 0.24 K/uL (0.00-0.80); MONOCYTES PERCENT AUTO 5.4 % (0.0-8.0); NEUTROPHILS ABSOLUTE AUTO 2.03 K/uL (1.80-7.70); NEUTROPHILS PERCENT AUTO 46.1 % (41.0-71.0); NRBC ABSOLUTE 0.00 K/uL (0.00-0.02); NRBC PERCENT 0.0 /100WBC (0.0-0.2); PLATELET COUNT,PLT 201 K/uL (150-400); RED BLOOD CELL COUNT 3.54 M/uL (4.10-5.30); WHITE BLOOD CELL COUNT,WBC 4.41 K/uL (3.9-11.3)
[2025-10-04 06:00] LABS: A/G RATIO 1.4 (0.9-1.6); ALANINE AMINOTRANSFERASE,ALT 24.0 IU/L (14-63); ASPARTATE AMNIOTRANSFERASE,AST 21.0 IU/L (15-37); BILIRUBIN TOTAL 0.4 mg/dL (0.2-1.0); BLOOD UREA NITROGEN,BUN 10.0 mg/dL (7.0-18.0); CARBON DIOXIDE,CO2 32.9 mmol/L (21.0-32.0); CHLORIDE,CL 105.0 mmol/L (98-107); CREATININE 0.7 mg/dL (0.6-1.0); EST CRCL DRUG DOSING (CG) 82.1 mL/min; GLUCOSE RANDOM 138.0 mg/dL (74-106); POTASSIUM,K 4.1 mmol/L (3.5-5.1); PROTEIN TOTAL,TP 5.8 g/dL (6.4-8.2); SODIUM,NA 141.0 mmol/L (136-145)
[2025-10-04 06:44] LABS: ESTIMATED GFR 105.0 mL/min (>60)
== END 2025-10-04 13:45 | disposition home or self-care (01) ==
LOC: MW.ED 16:40 → MW.MS 20:20
PROVIDERS: ADMIT Internal Medicine; ATTEND Internal Medicine
DX: K85.90 Acute pancreatitis without necrosis or infection, unspecified (principal); K52.9 Noninfective gastroenteritis and colitis, unspecified; K21.9 Gastro-esophageal reflux disease without esophagitis; N28.9 Disorder of kidney and ureter, unspecified; Z88.2 Allergy status to sulfonamides; Z79.899 Other long term (current) drug therapy
CPT/HCPCS: 36415; 74177; 76705; 80053; 80061; 81003; 82947; 83690; 83735; 84100; 84484; 85025; 93005; A9270; J1171; J2405; J2470; J7030; J7120; Q9967